=== PATIENT | female | born 1950 | race Caucasian/White ===

== ENCOUNTER 2017-09-27 12:16 | Inpatient (IN) ==
[2017-09-27] MEDS ORDERED: SODIUM CHLORIDE 0.9% 500 ML IV STA (12:43)
[2017-09-27] MEDS ORDERED: DIPH/TET/ACEL PERT BOOSTER VACCINE 0.5 ML VIAL IM ONE (12:43)
[2017-09-27 12:56] LABS: Basophils % 0.1 % (0.0-0.8); Hematocrit 38.1 VOL% (35.7-47.0); Immature Granulocytes % 0.8 %; Immature Granulocytes Absolute 0.15 #; Lymphocytes # 1.4 10*3/uL (1.4-4.0); Lymphocytes % 7.3 % (21.3-54.2); Mean Corpuscular HGB Conc 34.1 GM/DL (32-36); Mean Corpuscular Hemoglobin 28 PG (27-34); Mean Corpuscular Volume 83.2 FL (87-102); Mean Platelet Volume 9.1 FL (9.6-12.0); Monocytes % 5.3 % (1.7-12.7); Neutrophils % 86.5 % (38.7-73.9); Platelet Count 413 T/CUMM (130-400); Red Blood Count 4.58 MC/CUMM (3.8-5.5); Red Cell Distribution Width 13.2 % (9.3-17.3); White Blood Count 18.5 T/CUMM (4-12)
[2017-09-27 13:06] LABS: Amorphous Crystals,Urine Occasional /HPF (Few); Apearance,Urine CLEAR (Clear); Bacteria,Urine Occasional /HPF (Few); Bilirubin,Urine Negative (Negative); Blood, Urine Moderate mg/dL (Negative); Glucose,Urine (UA) >=500 mg/dL (Negative); Ketones,Urine Negative (Negative); Mucus,Urine Occasional /LPF (Occasional); Nitrite,Urine Negative (Negative); Protein,Urine 100 MG/DL; RBC,Urine 1 /HPF (0-4); Urine Color Yellow (Yellow); Urine Specific Gravity 1.006 (1.001-1.035); Urine Urobilinogen < 2.0 EU/DL (0.2-1.0); WBC,Urine <1 /HPF (0-6)
[2017-09-27 13:07] LABS: PT Patient Result 10.8 SECS; Partial Thromboplastin Time 26.6 SECS (0-40)
[2017-09-27 13:30] LABS: Albumin 3.5 G/DL (3.4-5.0); Bilirubin,Total 0.6 MG/DL (0.2-1.0); Calcium 9.2 MG/DL (8.5-10.1); Osmolality,Calculated 299.1 MOS/KG (273-304); Total Protein 8.7 G/DL (6.4-8.3)
[2017-09-27] MEDS ORDERED: ACETAMINOPHEN 325 MG TABLET PO PRN (15:14)
[2017-09-27] MEDS ORDERED: ONDANSETRON 4 MG/2 ML VIAL IV PRN (15:14)
[2017-09-27] MEDS ORDERED: METOPROLOL TARTRATE 5 MG/5 ML VIAL IV STA (15:18)
[2017-09-27] MEDS ORDERED: GLUCAGON 1 MG VIAL IM PRN (15:23)
[2017-09-27] MEDS ORDERED: DEXTROSE 50% 25 GM/50 ML VIAL IV PRN (15:23)
[2017-09-27] MEDS: SODIUM CHLORIDE 0.9% 1,000 ML IV SCH ×2 (15:43→16:33)
[2017-09-27] MEDS: POTASSIUM CHLORIDE 20 MEQ TABLET PO PRN ×4 (16:49→23:30)
[2017-09-27] MEDS: INSULIN LISPRO 100 UNIT/ML SUBCUT SCH ×2 (18:48→21:29)
[2017-09-27] MEDS: CYPROHEPTADINE 4 MG TABLET PO SCH (21:25)
[2017-09-28] MEDS: hydrALAZINE 20 MG/1 ML VIAL IV PRN ×3 (00:27→16:49)
[2017-09-28] MEDS: SODIUM CHLORIDE 0.9% 1,000 ML IV SCH ×2 (05:49→19:23)
[2017-09-28 05:50] LABS: Basophils % 0.1 % (0.0-0.8); Hematocrit 30.4 VOL% (35.7-47.0); Hemoglobin 10.3 GM/DL (12.0-16.0); Immature Granulocytes % 0.5 %; Immature Granulocytes Absolute 0.07 #; Lymphocytes # 2.5 10*3/uL (1.4-4.0); Lymphocytes % 16.3 % (21.3-54.2); Mean Corpuscular HGB Conc 33.9 GM/DL (32-36); Mean Corpuscular Hemoglobin 28 PG (27-34); Mean Corpuscular Volume 82.6 FL (87-102); Mean Platelet Volume 9.1 FL (9.6-12.0); Monocytes % 6.6 % (1.7-12.7); NRBC # 0.02 10*3/uL; Neutrophils # 11.8 10*3/uL (1.4-7.4); Neutrophils % 76.5 % (38.7-73.9); Platelet Count 336 T/CUMM (130-400); Red Blood Count 3.68 MC/CUMM (3.8-5.5); Red Cell Distribution Width 13.4 % (9.3-17.3); White Blood Count 15.4 T/CUMM (4-12)
[2017-09-28 06:16] LABS: Calcium 8.8 MG/DL (8.5-10.1); Potassium 3.6 MMOL/L (3.5-5.1); Thyroid Stimulating Hormone 0.284 uIU/ml (0.358-3.74)
[2017-09-28] MEDS: INSULIN LISPRO 100 UNIT/ML SUBCUT SCH ×4 (08:04→22:11)
[2017-09-28] MEDS ORDERED: METOPROLOL TARTRATE 25 MG TABLET PO SCH ×2 (09:00→11:30)
[2017-09-28] MEDS: CYPROHEPTADINE 4 MG TABLET PO SCH ×2 (09:59→21:59)
[2017-09-28] MEDS: PANTOPRAZOLE 40 MG TABLET PO SCH (10:01)
[2017-09-28] MEDS: METOPROLOL TARTRATE 25 MG TABLET PO SCH ×2 (11:16→21:59)
[2017-09-29] MEDS: LEVOTHYROXINE 100 MCG TABLET PO SCH (07:05)
[2017-09-29 07:07] LABS: Basophils % 0.1 % (0.0-0.8); Hematocrit 28.2 VOL% (35.7-47.0); Hemoglobin 9.6 GM/DL (12.0-16.0); Immature Granulocytes % 0.7 %; Immature Granulocytes Absolute 0.08 #; Lymphocytes # 2.2 10*3/uL (1.4-4.0); Lymphocytes % 19.6 % (21.3-54.2); Mean Corpuscular Hemoglobin 28 PG (27-34); Mean Corpuscular Volume 81.7 FL (87-102); Mean Platelet Volume 9.3 FL (9.6-12.0); Monocytes # 0.8 10*3/uL (0.11-0.8); Monocytes % 6.8 % (1.7-12.7); Neutrophils # 8.1 10*3/uL (1.4-7.4); Neutrophils % 72.8 % (38.7-73.9); Platelet Count 317 T/CUMM (130-400); Red Blood Count 3.45 MC/CUMM (3.8-5.5); Red Cell Distribution Width 13.2 % (9.3-17.3); White Blood Count 11.1 T/CUMM (4-12)
[2017-09-29] MEDS: INSULIN LISPRO 100 UNIT/ML SUBCUT SCH ×4 (07:32→22:51)
[2017-09-29 07:34] LABS: Calcium 8.6 MG/DL (8.5-10.1); Osmolality,Calculated 276.7 MOS/KG (273-304); Potassium 3.2 MMOL/L (3.5-5.1)
[2017-09-29 08:07] LABS: Troponin I Only 0.05 NG/ML (0.00-0.045)
[2017-09-29] MEDS ORDERED: POLYETHYLENE GLYCOL POWDER 17 GM PACK PO PRN (08:34)
[2017-09-29] MEDS: PANTOPRAZOLE 40 MG TABLET PO SCH (08:42)
[2017-09-29] MEDS: CYPROHEPTADINE 4 MG TABLET PO SCH ×2 (08:42→21:32)
[2017-09-29] MEDS: METOPROLOL TARTRATE 25 MG TABLET PO SCH (08:42)
[2017-09-29] MEDS: SODIUM CHLORIDE 0.9% 1,000 ML IV SCH ×2 (08:43→23:03)
[2017-09-29] MEDS ORDERED: PROMETHAZINE 12.5 MG SUPP RECTAL PRN (08:45)
[2017-09-29] MEDS: POTASSIUM CHLORIDE 20 MEQ TABLET PO PRN ×2 (11:15→13:15)
[2017-09-29] MEDS ORDERED: METOPROLOL TARTRATE 25 MG TABLET PO ONE (13:00)
[2017-09-29] MEDS: POTASSIUM CHLORIDE RIDER 10 MEQ in PREMIX 1 EACH IV SCH ×4 (13:49→18:10)
[2017-09-29] MEDS: amLODIPine 5 MG TABLET PO SCH (17:20)
[2017-09-29] MEDS ORDERED: LOSARTAN 25 MG TABLET PO SCH (21:00)
[2017-09-29] MEDS ORDERED: METOPROLOL TARTRATE 50 MG TABLET PO SCH (21:00)
[2017-09-29] MEDS: NEBIVOLOL 5 MG TABLET PO SCH (21:30)
[2017-09-29] MEDS: POTASSIUM CHLORIDE PO SCH (23:04)
[2017-09-30] MEDS: LEVOTHYROXINE 100 MCG TABLET PO SCH ×2 (05:18→07:01)
[2017-09-30 06:03] LABS: Basophils % 0.1 % (0.0-0.8); Eosinophils # 0.1 10*3/uL (0.0-0.87); Eosinophils % 0.5 % (0.00-10.9); Hematocrit 28.4 VOL% (35.7-47.0); Hemoglobin 9.8 GM/DL (12.0-16.0); Immature Granulocytes % 0.7 %; Immature Granulocytes Absolute 0.08 #; Lymphocytes # 2.2 10*3/uL (1.4-4.0); Lymphocytes % 20.7 % (21.3-54.2); Mean Corpuscular HGB Conc 34.5 GM/DL (32-36); Mean Corpuscular Hemoglobin 29 PG (27-34); Mean Platelet Volume 9.3 FL (9.6-12.0); Monocytes # 0.8 10*3/uL (0.11-0.8); Monocytes % 7.1 % (1.7-12.7); Neutrophils # 7.6 10*3/uL (1.4-7.4); Neutrophils % 70.9 % (38.7-73.9); Platelet Count 342 T/CUMM (130-400); Red Blood Count 3.38 MC/CUMM (3.8-5.5); White Blood Count 10.8 T/CUMM (4-12)
[2017-09-30 06:31] LABS: Calcium 8.4 MG/DL (8.5-10.1); Osmolality,Calculated 278.4 MOS/KG (273-304); Potassium 3.4 MMOL/L (3.5-5.1)
[2017-09-30] MEDS: INSULIN LISPRO 100 UNIT/ML SUBCUT SCH ×2 (07:44→11:50)
[2017-09-30] MEDS ORDERED: fentaNYL 12 MCG/HR PATCH TRANSDERM SCH (09:00)
[2017-09-30] MEDS: POTASSIUM CHLORIDE PO SCH (10:30)
[2017-09-30] MEDS: PANTOPRAZOLE 40 MG TABLET PO SCH (10:30)
[2017-09-30] MEDS: CYPROHEPTADINE 4 MG TABLET PO SCH (10:30)
[2017-09-30] MEDS: amLODIPine 5 MG TABLET PO SCH (10:30)
[2017-09-30] MEDS: NEBIVOLOL 5 MG TABLET PO SCH (10:30)
[2017-09-30] MEDS ORDERED: POTASSIUM CHLORIDE 20 MEQ TABLET PO ONE (11:00)
[2017-09-30 11:41] VITALS: BP 180/80
[2017-09-30] MEDS: SODIUM CHLORIDE 0.9% 1,000 ML IV SCH (12:15)
== END 2017-09-30 13:20 | disposition home or self-care (01) | DRG 565 ==
LOC: EDBD → EDUNIT# → N.ED 12:16 → N.EDINP 15:01 → N.2E 16:05

== ENCOUNTER 2017-10-28 03:37 | Inpatient (IN) ==
[2017-10-28] MEDS ORDERED: PANTOPRAZOLE 40 MG VIAL IV STA (04:07)
[2017-10-28] MEDS ORDERED: SODIUM CHLORIDE 0.9% 500 ML IV STA (04:07)
[2017-10-28] MEDS ORDERED: ONDANSETRON 4 MG/2 ML VIAL IV STA (04:07)
[2017-10-28] MEDS ORDERED: ALUM/MAG/SIMETH/LIDO VISC 1:1 30 ML BOTTLE PO STA (04:07)
[2017-10-28 04:30] LABS: Basophils % 0.2 % (0.0-0.8); Eosinophils % 0.2 % (0.00-10.9); Hematocrit 32.8 VOL% (35.7-47.0); Hemoglobin 10.8 GM/DL (12.0-16.0); Immature Granulocytes % 0.5 %; Immature Granulocytes Absolute 0.09 #; Lymphocytes # 1.1 10*3/uL (1.4-4.0); Lymphocytes % 5.8 % (21.3-54.2); Mean Corpuscular HGB Conc 32.9 GM/DL (32-36); Mean Corpuscular Hemoglobin 28 PG (27-34); Mean Corpuscular Volume 85.2 FL (87-102); Mean Platelet Volume 8.1 FL (9.6-12.0); Monocytes # 0.7 10*3/uL (0.11-0.8); Neutrophils # 16.7 10*3/uL (1.4-7.4); Neutrophils % 89.3 % (38.7-73.9); Platelet Count 419 T/CUMM (130-400); Red Blood Count 3.85 MC/CUMM (3.8-5.5); Red Cell Distribution Width 13.5 % (9.3-17.3); White Blood Count 18.7 T/CUMM (4-12)
[2017-10-28 04:53] LABS: Lactic Acid 1.2 MMOL/L (0.4-2.0)
[2017-10-28 04:54] LABS: Alanine Aminotransferase 17 U/L (13-56); Albumin 3.3 G/DL (3.4-5.0); Alkaline Phosphatase 89 U/L (45-117); Amylase 17 U/L (25-115); Aspartate Amino Transferase 19 U/L (0-37); Bilirubin,Total < 0.39 MG/DL (0.2-1.0); Blood Urea Nitrogen 7 MG/DL (7-18); Glucose 151 MG/DL (74-106); Osmolality,Calculated 273.8 MOS/KG (273-304); Potassium 2.8 MMOL/L (3.5-5.1); Sodium 137 MMOL/L (136-145); Total Protein 8.1 G/DL (6.4-8.3)
[2017-10-28] MEDS ORDERED: POTASSIUM CHLORIDE 20 MEQ TABLET PO STA (05:05)
[2017-10-28] MEDS ORDERED: HYDROmorphone 2 MG/1 ML VIAL IV STA (05:20)
[2017-10-28] MEDS ORDERED: metroNIDAZOLE 500 MG TABLET PO STA (05:22)
[2017-10-28] MEDS ORDERED: CIPROFLOXACIN INJ 400 MG in PREMIX 1 EACH IV STA (05:22)
[2017-10-28 07:23] LABS: Risk Ratio 2.83; Thyroid Stimulating Hormone 4.47 uIU/ml (0.358-3.74); VLDL CHOLESTEROL 26.2 MG/DL
[2017-10-28] MEDS ORDERED: POTASSIUM CHLORIDE RIDER 100 ML IV ONE ×4 (07:53→12:19)
[2017-10-28] MEDS: ENOXAPARIN 40 MG/0.4 ML SYRINGE SUBCUT SCH (08:04)
[2017-10-28] MEDS: LEVOFLOXACIN INJ 500 MG in PREMIX 1 EACH IV SCH (08:04)
[2017-10-28] MEDS: POTASSIUM CHLORIDE RIDER 10 MEQ in PREMIX 1 EACH IV SCH ×4 (08:05→12:20)
[2017-10-28 08:13] LABS: Apearance,Urine CLEAR (Clear); Bilirubin,Urine Negative (Negative); Blood, Urine Negative (Negative); Glucose,Urine (UA) Negative (Negative); Ketones,Urine Negative (Negative); Nitrite,Urine Negative (Negative); Protein,Urine Negative; RBC,Urine <1 /HPF (0-4); Squamous Epithelial Cell,Urine Occasional /HPF (0-10); Urine Color Straw (Yellow); Urine Specific Gravity 1.019 (1.001-1.035); Urine Urobilinogen < 2.0 EU/DL (0.2-1.0); WBC,Urine 7 /HPF (0-6)
[2017-10-28] MEDS ORDERED: SODIUM CHLORIDE 0.9% 1,000 ML IV SCH (09:00)
[2017-10-28] MEDS: PANTOPRAZOLE 40 MG TABLET PO SCH (09:15)
[2017-10-28] MEDS: POTASSIUM CHLORIDE 20 MEQ TABLET PO SCH (09:15)
[2017-10-28] MEDS ORDERED: LEVOTHYROXINE 100 MCG TABLET PO ONE (09:30)
[2017-10-28] MEDS: amLODIPine 5 MG TABLET PO SCH (09:35)
[2017-10-28] MEDS: metroNIDAZOLE INJ 500 MG in PREMIX 1 EACH IV SCH ×2 (09:51→16:52)
[2017-10-28] MEDS: CYPROHEPTADINE 4 MG TABLET PO SCH ×2 (10:23→22:17)
[2017-10-28] MEDS ORDERED: GLUCAGON 1 MG VIAL IM PRN (15:41)
[2017-10-28] MEDS ORDERED: DEXTROSE 50% 25 GM/50 ML VIAL IV PRN (15:41)
[2017-10-28] MEDS ORDERED: POTASSIUM CHLORIDE INJ 20 MEQ in SODIUM CHLORIDE 0.9% 1,000 ML IV SCH (15:46)
[2017-10-28] MEDS: INSULIN LISPRO 100 UNIT/ML SUBCUT SCH ×2 (16:39→22:17)
[2017-10-28] MEDS: SODIUM CHLOR 0.9% KCL 20 MEQ 20 MEQ/1,000 ML BAG IV SCH (16:53)
[2017-10-28] MEDS: ONDANSETRON 4 MG/2 ML VIAL IV PRN (22:15)
[2017-10-29] MEDS: metroNIDAZOLE INJ 500 MG in PREMIX 1 EACH IV SCH ×3 (01:30→16:58)
[2017-10-29] MEDS: SODIUM CHLOR 0.9% KCL 20 MEQ 20 MEQ/1,000 ML BAG IV SCH ×2 (06:11→13:20)
[2017-10-29 06:21] LABS: Basophils % 0.2 % (0.0-0.8); Eosinophils % 0.7 % (0.00-10.9); Hematocrit 29.2 VOL% (35.7-47.0); Hemoglobin 9.3 GM/DL (12.0-16.0); Immature Granulocytes % 0.4 %; Immature Granulocytes Absolute 0.02 #; Lymphocytes # 1.4 10*3/uL (1.4-4.0); Lymphocytes % 26.6 % (21.3-54.2); Mean Corpuscular HGB Conc 31.8 GM/DL (32-36); Mean Corpuscular Hemoglobin 28 PG (27-34); Mean Corpuscular Volume 86.4 FL (87-102); Mean Platelet Volume 8.6 FL (9.6-12.0); Monocytes # 0.5 10*3/uL (0.11-0.8); Monocytes % 9.9 % (1.7-12.7); Neutrophils # 3.4 10*3/uL (1.4-7.4); Neutrophils % 62.2 % (38.7-73.9); Platelet Count 366 T/CUMM (130-400); Red Blood Count 3.38 MC/CUMM (3.8-5.5); Red Cell Distribution Width 13.9 % (9.3-17.3); White Blood Count 5.4 T/CUMM (4-12)
[2017-10-29 06:45] LABS: Bilirubin,Total 0.6 MG/DL (0.2-1.0); Osmolality,Calculated 278.3 MOS/KG (273-304); Potassium 3.5 MMOL/L (3.5-5.1); Total Protein 7.2 G/DL (6.4-8.3)
[2017-10-29] MEDS: ENOXAPARIN 40 MG/0.4 ML SYRINGE SUBCUT SCH (06:55)
[2017-10-29] MEDS: LEVOFLOXACIN INJ 500 MG in PREMIX 1 EACH IV SCH (06:55)
[2017-10-29] MEDS: LEVOTHYROXINE 100 MCG TABLET PO SCH (07:35)
[2017-10-29] MEDS ORDERED: BISACODYL 10 MG SUPP RECTAL ONE (08:30)
[2017-10-29] MEDS ORDERED: LACTULOSE 20 GM/30 ML UDCUP PO ONE (08:30)
[2017-10-29 08:33] LABS: % Iron Saturation 13.9 % (18-50)
[2017-10-29] MEDS: PANTOPRAZOLE 40 MG TABLET PO SCH (09:45)
[2017-10-29] MEDS: amLODIPine 5 MG TABLET PO SCH (09:45)
[2017-10-29] MEDS: CYPROHEPTADINE 4 MG TABLET PO SCH ×2 (09:45→21:51)
[2017-10-29] MEDS: INSULIN LISPRO 100 UNIT/ML SUBCUT SCH ×4 (09:45→21:41)
[2017-10-29] MEDS: POTASSIUM CHLORIDE 20 MEQ TABLET PO SCH (09:45)
[2017-10-29] MEDS ORDERED: CYANOCOBALAMIN 1000 MCG/1 ML VIAL IM ONE (10:32)
[2017-10-29] MEDS: VANCOMYCIN INJ 1,000 MG in SODIUM CHLORIDE 0.9% 250 ML IV SCH ×2 (12:06→21:52)
[2017-10-29] MEDS: traZODone 50 MG TABLET PO SCH (21:51)
[2017-10-29] MEDS: FOLIC ACID 1 MG TABLET PO SCH (21:51)
[2017-10-30] MEDS: metroNIDAZOLE INJ 500 MG in PREMIX 1 EACH IV SCH ×3 (01:09→16:42)
[2017-10-30 04:32] LABS: Basophils % 0.2 % (0.0-0.8); Eosinophils % 0.5 % (0.00-10.9); Hematocrit 32.4 VOL% (35.7-47.0); Hemoglobin 10.4 GM/DL (12.0-16.0); Immature Granulocytes % 0.9 %; Immature Granulocytes Absolute 0.05 #; Lymphocytes # 1.3 10*3/uL (1.4-4.0); Lymphocytes % 23.4 % (21.3-54.2); Mean Corpuscular HGB Conc 32.1 GM/DL (32-36); Mean Corpuscular Hemoglobin 28 PG (27-34); Mean Corpuscular Volume 85.7 FL (87-102); Mean Platelet Volume 8.6 FL (9.6-12.0); Monocytes # 0.6 10*3/uL (0.11-0.8); Neutrophils # 3.7 10*3/uL (1.4-7.4); Platelet Count 363 T/CUMM (130-400); Red Blood Count 3.78 MC/CUMM (3.8-5.5); Red Cell Distribution Width 13.9 % (9.3-17.3); White Blood Count 5.6 T/CUMM (4-12)
[2017-10-30] MEDS: ONDANSETRON 4 MG/2 ML VIAL IV PRN (06:06)
[2017-10-30] MEDS: SODIUM CHLOR 0.9% KCL 20 MEQ 20 MEQ/1,000 ML BAG IV SCH ×4 (06:07→18:09)
[2017-10-30] MEDS: LEVOFLOXACIN INJ 500 MG in PREMIX 1 EACH IV SCH (07:40)
[2017-10-30] MEDS: LEVOTHYROXINE 100 MCG TABLET PO SCH (07:40)
[2017-10-30] MEDS: INSULIN LISPRO 100 UNIT/ML SUBCUT SCH ×5 (10:39→21:25)
[2017-10-30] MEDS: VANCOMYCIN INJ 1,000 MG in SODIUM CHLORIDE 0.9% 250 ML IV SCH (12:22)
[2017-10-30] MEDS: CYPROHEPTADINE 4 MG TABLET PO SCH ×2 (16:40→21:21)
[2017-10-30] MEDS: POTASSIUM CHLORIDE 20 MEQ TABLET PO SCH (16:41)
[2017-10-30] MEDS: PANTOPRAZOLE 40 MG TABLET PO SCH (16:41)
[2017-10-30] MEDS: amLODIPine 5 MG TABLET PO SCH (16:41)
[2017-10-30] MEDS: ENOXAPARIN 40 MG/0.4 ML SYRINGE SUBCUT SCH (16:42)
[2017-10-30] MEDS: traZODone 50 MG TABLET PO SCH (21:20)
[2017-10-30] MEDS: FOLIC ACID 1 MG TABLET PO SCH (21:20)
[2017-10-31] MEDS: metroNIDAZOLE INJ 500 MG in PREMIX 1 EACH IV SCH ×2 (00:32→09:15)
[2017-10-31] MEDS ORDERED: MORPHINE 4 MG/1 ML VIAL IV PRN (02:36)
[2017-10-31] MEDS: SODIUM CHLOR 0.9% KCL 20 MEQ 20 MEQ/1,000 ML BAG IV SCH (02:50)
[2017-10-31 03:17] LABS: Basophils % 0.4 % (0.0-0.8); Eosinophils % 0.8 % (0.00-10.9); Hematocrit 29.4 VOL% (35.7-47.0); Hemoglobin 9.7 GM/DL (12.0-16.0); Immature Granulocytes % 0.8 %; Immature Granulocytes Absolute 0.04 #; Lymphocytes # 1.7 10*3/uL (1.4-4.0); Lymphocytes % 32.9 % (21.3-54.2); Mean Corpuscular Hemoglobin 28 PG (27-34); Mean Corpuscular Volume 86.2 FL (87-102); Mean Platelet Volume 8.5 FL (9.6-12.0); Monocytes # 0.6 10*3/uL (0.11-0.8); Monocytes % 11.5 % (1.7-12.7); Neutrophils # 2.8 10*3/uL (1.4-7.4); Neutrophils % 53.6 % (38.7-73.9); Platelet Count 345 T/CUMM (130-400); Red Blood Count 3.41 MC/CUMM (3.8-5.5); Red Cell Distribution Width 13.8 % (9.3-17.3); White Blood Count 5.1 T/CUMM (4-12)
[2017-10-31 03:41] LABS: Calcium 9.2 MG/DL (8.5-10.1)
[2017-10-31 03:42] LABS: Osmolality,Calculated 276.4 MOS/KG (273-304); Potassium 4.2 MMOL/L (3.5-5.1)
[2017-10-31] MEDS: LEVOFLOXACIN INJ 500 MG in PREMIX 1 EACH IV SCH (06:00)
[2017-10-31] MEDS: ENOXAPARIN 40 MG/0.4 ML SYRINGE SUBCUT SCH (06:00)
[2017-10-31] MEDS: ONDANSETRON 4 MG/2 ML VIAL IV PRN (06:09)
[2017-10-31] MEDS: LEVOTHYROXINE 100 MCG TABLET PO SCH (07:48)
[2017-10-31] MEDS: amLODIPine 5 MG TABLET PO SCH (09:14)
[2017-10-31] MEDS: CYPROHEPTADINE 4 MG TABLET PO SCH (09:14)
[2017-10-31] MEDS: POTASSIUM CHLORIDE 20 MEQ TABLET PO SCH (09:14)
[2017-10-31] MEDS: PANTOPRAZOLE 40 MG TABLET PO SCH (09:14)
[2017-10-31] MEDS: INSULIN LISPRO 100 UNIT/ML SUBCUT SCH (09:16)
[2017-10-31 11:55] VITALS: BP 136/70
== END 2017-10-31 12:50 | disposition home or self-care (01) | DRG 690 ==
LOC: N.ED 03:37 → N.EDINP 03:37 → N.3E 14:25
PROVIDERS: ADMIT Internal Medicine; ATTEND Internal Medicine

== ENCOUNTER 2017-11-30 09:04 | Inpatient (IN) ==
[2017-11-30 10:05] LABS: Basophils % 0.3 % (0.0-0.8); Eosinophils % 0.5 % (0.00-10.9); Hematocrit 38.5 VOL% (35.7-47.0); Hemoglobin 12.6 GM/DL (12.0-16.0); Immature Granulocytes % 0.7 %; Immature Granulocytes Absolute 0.04 #; Lymphocytes # 1.5 10*3/uL (1.4-4.0); Lymphocytes % 25.8 % (21.3-54.2); Mean Corpuscular HGB Conc 32.7 GM/DL (32-36); Mean Corpuscular Hemoglobin 28 PG (27-34); Mean Corpuscular Volume 83.9 FL (87-102); Monocytes # 0.4 10*3/uL (0.11-0.8); Monocytes % 7.1 % (1.7-12.7); Neutrophils # 3.8 10*3/uL (1.4-7.4); Neutrophils % 65.6 % (38.7-73.9); Platelet Count 379 T/CUMM (130-400); Red Blood Count 4.59 MC/CUMM (3.8-5.5); Red Cell Distribution Width 13.6 % (9.3-17.3); White Blood Count 5.8 T/CUMM (4-12)
[2017-11-30 10:17] LABS: INR 0.9; Partial Thromboplastin Time 27.1 SECS (0-40)
[2017-11-30 10:23] LABS: Apearance,Urine CLEAR (Clear); Bilirubin,Urine Negative (Negative); Blood, Urine Negative (Negative); Glucose,Urine (UA) Negative (Negative); Ketones,Urine Negative (Negative); Mucus,Urine Occasional /LPF (Occasional); Nitrite,Urine Negative (Negative); Protein,Urine Negative; RBC,Urine <1 /HPF (0-4); Urine Color Straw (Yellow); Urine Specific Gravity 1.005 (1.001-1.035); Urine Urobilinogen < 2.0 EU/DL (0.2-1.0)
[2017-11-30 10:34] LABS: Alanine Aminotransferase 23 U/L (13-56); Alkaline Phosphatase 67 U/L (45-117); Aspartate Amino Transferase 17 U/L (0-37); Blood Urea Nitrogen 7 MG/DL (7-18); Calcium 9.7 MG/DL (8.5-10.1); Glucose 130 MG/DL (74-106); Osmolality,Calculated 278.4 MOS/KG (273-304); Potassium 3.5 MMOL/L (3.5-5.1); Sodium 140 MMOL/L (136-145); Total Protein 8.8 G/DL (6.4-8.3)
[2017-11-30 10:37] LABS: Barbiturates Screen,Urine Negative (Negative); Benzodiazepines Screen,Urine Negative (Negative); Cannabinoid Screen,Urine Negative (Negative); Opiate Screen,Urine Positive (Negative); Phencyclidine Screen,Urine Negative (Negative)
[2017-11-30 10:37] LABS: Ammonia 16 UMOL/L (11-32)
[2017-11-30 11:53] LABS: Sedimentation Rate-Westergren 66 MM/HR (0-30)
[2017-11-30] MEDS ORDERED: diphenhydrAMINE CAP 25 MG CAPSULE PO PRN (12:47)
[2017-11-30] MEDS ORDERED: ONDANSETRON 4 MG/2 ML VIAL IV PRN (12:47)
[2017-11-30] MEDS ORDERED: POLYETHYLENE GLYCOL POWDER 17 GM PACK PO PRN (12:47)
[2017-11-30] MEDS ORDERED: DOCUSATE SODIUM 100 MG CAPSULE PO PRN (12:47)
[2017-11-30] MEDS ORDERED: MORPHINE 4 MG/1 ML VIAL IV PRN (12:47)
[2017-11-30] MEDS ORDERED: LISINOPRIL 20 MG TABLET PO SCH (13:00)
[2017-11-30] MEDS: NEBIVOLOL 5 MG TABLET PO SCH ×2 (14:43→21:28)
[2017-11-30] MEDS: ENOXAPARIN 40 MG/0.4 ML SYRINGE SUBCUT SCH (14:43)
[2017-11-30] MEDS: LEVOTHYROXINE 100 MCG TABLET PO SCH (14:43)
[2017-11-30] MEDS: POTASSIUM CHLORIDE 10 MEQ TABLET PO SCH ×2 (14:43→21:28)
[2017-11-30] MEDS: amLODIPine 5 MG TABLET PO SCH (14:44)
[2017-11-30] MEDS: ASPIRIN CHEW 81 MG TABLET PO SCH (14:44)
[2017-11-30] MEDS: SODIUM CHLORIDE 0.9% 1,000 ML IV SCH (14:44)
[2017-11-30] MEDS: PANTOPRAZOLE 40 MG TABLET PO SCH (14:44)
[2017-11-30] MEDS: ROSUVASTATIN 10 MG TABLET PO SCH (21:28)
[2017-12-01 04:56] LABS: Basophils % 0.5 % (0.0-0.8); Eosinophils # 0.1 10*3/uL (0.0-0.87); Eosinophils % 0.8 % (0.00-10.9); Hematocrit 34.2 VOL% (35.7-47.0); Hemoglobin 10.7 GM/DL (12.0-16.0); Immature Granulocytes % 0.6 %; Immature Granulocytes Absolute 0.04 #; Lymphocytes # 2.3 10*3/uL (1.4-4.0); Lymphocytes % 35.3 % (21.3-54.2); Mean Corpuscular HGB Conc 31.3 GM/DL (32-36); Mean Corpuscular Hemoglobin 27 PG (27-34); Mean Corpuscular Volume 86.6 FL (87-102); Mean Platelet Volume 9.5 FL (9.6-12.0); Monocytes # 0.6 10*3/uL (0.11-0.8); Monocytes % 9.6 % (1.7-12.7); Neutrophils # 3.5 10*3/uL (1.4-7.4); Neutrophils % 53.2 % (38.7-73.9); Platelet Count 331 T/CUMM (130-400); Red Blood Count 3.95 MC/CUMM (3.8-5.5); Red Cell Distribution Width 13.5 % (9.3-17.3); White Blood Count 6.5 T/CUMM (4-12)
[2017-12-01 05:16] LABS: Osmolality,Calculated 281.3 MOS/KG (273-304); Potassium 3.9 MMOL/L (3.5-5.1); VLDL CHOLESTEROL 48.8 MG/DL
[2017-12-01] MEDS: LEVOTHYROXINE 100 MCG TABLET PO SCH (09:16)
[2017-12-01] MEDS: NEBIVOLOL 5 MG TABLET PO SCH ×2 (09:16→21:38)
[2017-12-01] MEDS: POTASSIUM CHLORIDE 10 MEQ TABLET PO SCH ×2 (09:17→21:38)
[2017-12-01] MEDS: ASPIRIN CHEW 81 MG TABLET PO SCH (09:17)
[2017-12-01] MEDS: PANTOPRAZOLE 40 MG TABLET PO SCH (09:17)
[2017-12-01] MEDS: amLODIPine 5 MG TABLET PO SCH (09:17)
[2017-12-01] MEDS: ENOXAPARIN 40 MG/0.4 ML SYRINGE SUBCUT SCH (09:17)
[2017-12-01] MEDS: SODIUM CHLORIDE 0.9% 1,000 ML IV SCH (10:56)
[2017-12-01] MEDS: ROSUVASTATIN 10 MG TABLET PO SCH (21:37)
[2017-12-02] MEDS: SODIUM CHLORIDE 0.9% 1,000 ML IV SCH (07:08)
[2017-12-02] MEDS: NEBIVOLOL 5 MG TABLET PO SCH ×2 (08:49→20:49)
[2017-12-02] MEDS: ASPIRIN CHEW 81 MG TABLET PO SCH (08:50)
[2017-12-02] MEDS: LEVOTHYROXINE 100 MCG TABLET PO SCH (08:50)
[2017-12-02] MEDS: amLODIPine 5 MG TABLET PO SCH (08:50)
[2017-12-02] MEDS: POTASSIUM CHLORIDE 10 MEQ TABLET PO SCH ×2 (08:50→20:50)
[2017-12-02] MEDS: ENOXAPARIN 40 MG/0.4 ML SYRINGE SUBCUT SCH (08:50)
[2017-12-02] MEDS: PANTOPRAZOLE 40 MG TABLET PO SCH (08:50)
[2017-12-02] MEDS: FLUoxetine 20 MG CAPSULE PO SCH (20:50)
[2017-12-02] MEDS: ROSUVASTATIN 10 MG TABLET PO SCH (20:50)
[2017-12-03] MEDS: SODIUM CHLORIDE 0.9% 1,000 ML IV SCH (03:00)
[2017-12-03] MEDS ORDERED: ceFAZolin 1,000 MG in SYRINGE 1 EACH IV ONE (07:00)
[2017-12-03] MEDS: POTASSIUM CHLORIDE 10 MEQ TABLET PO SCH ×2 (08:11→20:29)
[2017-12-03] MEDS: NEBIVOLOL 5 MG TABLET PO SCH ×2 (08:11→20:29)
[2017-12-03] MEDS: ASPIRIN CHEW 81 MG TABLET PO SCH (08:11)
[2017-12-03] MEDS: PANTOPRAZOLE 40 MG TABLET PO SCH (08:12)
[2017-12-03] MEDS: LEVOTHYROXINE 100 MCG TABLET PO SCH (08:12)
[2017-12-03] MEDS: amLODIPine 5 MG TABLET PO SCH (08:12)
[2017-12-03] MEDS: ENOXAPARIN 40 MG/0.4 ML SYRINGE SUBCUT SCH (08:12)
[2017-12-03] MEDS ORDERED: LIDOCAINE 1% 20 ML VIAL ONE ×2 (08:15→09:12)
[2017-12-03] MEDS ORDERED: HEPARIN 5,000 UNIT/1 ML VIAL ONE ×2 (08:15→09:11)
[2017-12-03] MEDS ORDERED: ceFAZolin 1,000 MG VIAL ONE (10:26)
[2017-12-03] MEDS ORDERED: DEXTROSE 50% 25 GM/50 ML VIAL IV PRN (11:15)
[2017-12-03] MEDS ORDERED: ONDANSETRON 4 MG/2 ML VIAL IV PRN (11:15)
[2017-12-03] MEDS ORDERED: HYDROmorphone 2 MG/1 ML VIAL IV PRN (11:15)
[2017-12-03] MEDS ORDERED: oxyCODONE/ACETAMINOPHEN 5-325 MG TABLET PO PRN (11:15)
[2017-12-03] MEDS ORDERED: PROMETHAZINE 25 MG/1 ML VIAL IM PRN (11:15)
[2017-12-03] MEDS ORDERED: NALOXONE 0.4 MG/ML VIAL IV PRN (11:15)
[2017-12-03] MEDS ORDERED: GLUCAGON 1 MG VIAL IM PRN (11:15)
[2017-12-03] MEDS ORDERED: NITROPRUSSIDE 100 MG in DEXTROSE 5% 250 ML IV SCH (11:30)
[2017-12-03] MEDS ORDERED: PHENYLEPHRINE DRIP 40 MG/250 ML PREMIX IV SCH (11:30)
[2017-12-03] MEDS ORDERED: fentaNYL 100 MCG/2 ML VIAL ONE ×2 (11:40→11:41)
[2017-12-03] MEDS ORDERED: PROPOFOL 200 MG/20 ML VIAL IV ONE (11:40)
[2017-12-03] MEDS ORDERED: SEVOFLURANE 1 UNIT/15 MINUTE INH ONE (11:40)
[2017-12-03] MEDS ORDERED: HEPARIN/NACL 0.9% 2 UNITS/ML 500 ML IV ONE (11:40)
[2017-12-03] MEDS ORDERED: HEPARIN 10,000 UNIT/10 ML VIAL ONE (11:40)
[2017-12-03] MEDS ORDERED: NITROGLYCERIN DRIP 50 MG/250 ML BOTTLE IV ONE (11:41)
[2017-12-03] MEDS ORDERED: GLYCOPYRROLATE 0.4 MG/2 ML VIAL ONE (11:41)
[2017-12-03] MEDS ORDERED: PHENYLEPHRINE 10 MG/1 ML VIAL IV ONE (11:41)
[2017-12-03] MEDS ORDERED: NEOSTIGMINE 10 MG/10 ML VIAL ONE (11:41)
[2017-12-03] MEDS ORDERED: ROCURONIUM 100 MG/10 ML VIAL IV ONE (11:41)
[2017-12-03] MEDS ORDERED: PROTAMINE SULFATE 50 MG/5 ML VIAL IV ONE (11:41)
[2017-12-03] MEDS ORDERED: ONDANSETRON 4 MG/2 ML VIAL ONE (11:41)
[2017-12-03] MEDS ORDERED: LACTATED RINGERS 1,000 ML IV ONE (11:41)
[2017-12-03] MEDS: LACTATED RINGERS 1,000 ML IV SCH ×2 (12:53→21:38)
[2017-12-03] MEDS: HYDROmorphone 2 MG/1 ML VIAL IV PRN ×3 (13:40→22:57)
[2017-12-03] MEDS: FLUoxetine 20 MG CAPSULE PO SCH (20:29)
[2017-12-03] MEDS: oxyCODONE/ACETAMINOPHEN 5-325 MG TABLET PO PRN (20:29)
[2017-12-03] MEDS: ROSUVASTATIN 10 MG TABLET PO SCH (20:29)
[2017-12-04 04:03] LABS: Basophils % 0.2 % (0.0-0.8); Eosinophils % 0.3 % (0.00-10.9); Hematocrit 26.4 VOL% (35.7-47.0); Hemoglobin 8.2 GM/DL (12.0-16.0); Immature Granulocytes % 0.5 %; Immature Granulocytes Absolute 0.03 #; Lymphocytes # 1.5 10*3/uL (1.4-4.0); Mean Corpuscular HGB Conc 31.1 GM/DL (32-36); Mean Corpuscular Hemoglobin 27 PG (27-34); Mean Corpuscular Volume 86.3 FL (87-102); Mean Platelet Volume 9.8 FL (9.6-12.0); Monocytes # 0.7 10*3/uL (0.11-0.8); Monocytes % 10.6 % (1.7-12.7); Neutrophils % 64.4 % (38.7-73.9); Platelet Count 234 T/CUMM (130-400); Red Blood Count 3.06 MC/CUMM (3.8-5.5); Red Cell Distribution Width 13.5 % (9.3-17.3); White Blood Count 6.2 T/CUMM (4-12)
[2017-12-04 04:18] LABS: Calcium 8.8 MG/DL (8.5-10.1); Osmolality,Calculated 280.1 MOS/KG (273-304); Potassium 3.6 MMOL/L (3.5-5.1)
[2017-12-04] MEDS: LACTATED RINGERS 1,000 ML IV SCH (07:40)
[2017-12-04] MEDS: NEBIVOLOL 5 MG TABLET PO SCH ×2 (08:01→21:52)
[2017-12-04] MEDS: CLOPIDOGREL 75 MG TABLET PO SCH (08:01)
[2017-12-04] MEDS: POTASSIUM CHLORIDE 10 MEQ TABLET PO SCH ×2 (08:01→21:51)
[2017-12-04] MEDS: LEVOTHYROXINE 100 MCG TABLET PO SCH (08:01)
[2017-12-04] MEDS: amLODIPine 5 MG TABLET PO SCH (08:01)
[2017-12-04] MEDS: PANTOPRAZOLE 40 MG TABLET PO SCH (08:20)
[2017-12-04] MEDS: ASPIRIN CHEW 81 MG TABLET PO SCH (08:20)
[2017-12-04] MEDS: oxyCODONE/ACETAMINOPHEN 5-325 MG TABLET PO PRN ×2 (13:04→19:28)
[2017-12-04] MEDS: HYDROmorphone 2 MG/1 ML VIAL IV PRN ×2 (17:35→22:04)
[2017-12-04] MEDS: FLUoxetine 20 MG CAPSULE PO SCH (21:51)
[2017-12-04] MEDS: ROSUVASTATIN 10 MG TABLET PO SCH (21:52)
[2017-12-05] MEDS: oxyCODONE/ACETAMINOPHEN 5-325 MG TABLET PO PRN ×2 (06:14→22:14)
[2017-12-05] MEDS: LEVOTHYROXINE 100 MCG TABLET PO SCH (09:12)
[2017-12-05] MEDS: NEBIVOLOL 5 MG TABLET PO SCH ×2 (09:12→22:13)
[2017-12-05] MEDS: CLOPIDOGREL 75 MG TABLET PO SCH (09:12)
[2017-12-05] MEDS: PANTOPRAZOLE 40 MG TABLET PO SCH (09:12)
[2017-12-05] MEDS: amLODIPine 5 MG TABLET PO SCH (09:12)
[2017-12-05] MEDS: ASPIRIN CHEW 81 MG TABLET PO SCH (09:12)
[2017-12-05] MEDS: POTASSIUM CHLORIDE 10 MEQ TABLET PO SCH ×2 (09:13→22:11)
[2017-12-05] MEDS: HYDROmorphone 2 MG/1 ML VIAL IV PRN ×2 (09:29→16:25)
[2017-12-05] MEDS: LACTULOSE 20 GM/30 ML UDCUP PO SCH (22:04)
[2017-12-05] MEDS: POLYETHYLENE GLYCOL POWDER 17 GM PACK PO SCH (22:05)
[2017-12-05] MEDS: SENNA 8.6 MG TABLET PO SCH (22:08)
[2017-12-05] MEDS: ROSUVASTATIN 10 MG TABLET PO SCH (22:11)
[2017-12-05] MEDS: LUBIPROSTONE 24 MCG CAPSULE PO SCH (22:11)
[2017-12-05] MEDS: DOCUSATE SODIUM 100 MG CAPSULE PO SCH (22:12)
[2017-12-05] MEDS: FLUoxetine 20 MG CAPSULE PO SCH (22:13)
[2017-12-06] MEDS: HYDROmorphone 2 MG/1 ML VIAL IV PRN ×2 (01:38→14:21)
[2017-12-06 06:05] LABS: Basophils % 0.4 % (0.0-0.8); Eosinophils % 0.5 % (0.00-10.9); Hematocrit 26.8 VOL% (35.7-47.0); Hemoglobin 8.8 GM/DL (12.0-16.0); Immature Granulocytes % 1.1 %; Immature Granulocytes Absolute 0.06 #; Lymphocytes # 1.6 10*3/uL (1.4-4.0); Lymphocytes % 29.3 % (21.3-54.2); Mean Corpuscular HGB Conc 32.8 GM/DL (32-36); Mean Corpuscular Hemoglobin 28 PG (27-34); Mean Corpuscular Volume 84.5 FL (87-102); Mean Platelet Volume 9.8 FL (9.6-12.0); Monocytes # 0.7 10*3/uL (0.11-0.8); Monocytes % 11.8 % (1.7-12.7); Neutrophils # 3.2 10*3/uL (1.4-7.4); Neutrophils % 56.9 % (38.7-73.9); Platelet Count 240 T/CUMM (130-400); Red Blood Count 3.17 MC/CUMM (3.8-5.5); Red Cell Distribution Width 13.4 % (9.3-17.3); White Blood Count 5.6 T/CUMM (4-12)
[2017-12-06 06:33] LABS: Calcium 8.5 MG/DL (8.5-10.1); Osmolality,Calculated 281.1 MOS/KG (273-304); Potassium 3.1 MMOL/L (3.5-5.1)
[2017-12-06] MEDS: POTASSIUM CHLORIDE 10 MEQ TABLET PO SCH ×2 (09:16→20:49)
[2017-12-06] MEDS: DOCUSATE SODIUM 100 MG CAPSULE PO SCH ×2 (09:16→20:50)
[2017-12-06] MEDS: ASPIRIN CHEW 81 MG TABLET PO SCH (09:16)
[2017-12-06] MEDS: CLOPIDOGREL 75 MG TABLET PO SCH (09:16)
[2017-12-06] MEDS: LUBIPROSTONE 24 MCG CAPSULE PO SCH ×2 (09:16→20:49)
[2017-12-06] MEDS: NEBIVOLOL 5 MG TABLET PO SCH ×2 (09:17→20:50)
[2017-12-06] MEDS: PANTOPRAZOLE 40 MG TABLET PO SCH (09:17)
[2017-12-06] MEDS: amLODIPine 5 MG TABLET PO SCH (09:17)
[2017-12-06] MEDS: LACTULOSE 20 GM/30 ML UDCUP PO SCH (09:18)
[2017-12-06] MEDS: LEVOTHYROXINE 100 MCG TABLET PO SCH (09:18)
[2017-12-06] MEDS: oxyCODONE/ACETAMINOPHEN 5-325 MG TABLET PO PRN ×2 (09:19→21:08)
[2017-12-06] MEDS: POLYETHYLENE GLYCOL POWDER 17 GM PACK PO SCH ×2 (09:27→20:50)
[2017-12-06] MEDS ORDERED: BISACODYL 10 MG SUPP RECTAL PRN (11:38)
[2017-12-06] MEDS ORDERED: MINERAL OIL 30 ML UDCUP PO ONE (16:05)
[2017-12-06] MEDS ORDERED: POTASSIUM CHLORIDE 20 MEQ TABLET PO ONE (16:18)
[2017-12-06] MEDS: FLUoxetine 20 MG CAPSULE PO SCH (20:49)
[2017-12-06] MEDS: ROSUVASTATIN 10 MG TABLET PO SCH (20:49)
[2017-12-06] MEDS: SENNA 8.6 MG TABLET PO SCH (20:50)
[2017-12-06] MEDS ORDERED: LACTULOSE 20 GM/30 ML UDCUP PO SCH (21:00)
[2017-12-07] MEDS: HYDROmorphone 2 MG/1 ML VIAL IV PRN ×3 (00:21→10:56)
[2017-12-07 05:58] LABS: Basophils % 0.2 % (0.0-0.8); Eosinophils % 0.8 % (0.00-10.9); Immature Granulocytes % 0.8 %; Immature Granulocytes Absolute 0.04 #; Lymphocytes # 1.5 10*3/uL (1.4-4.0); Lymphocytes % 28.5 % (21.3-54.2); Mean Corpuscular HGB Conc 33.3 GM/DL (32-36); Mean Corpuscular Hemoglobin 28 PG (27-34); Mean Corpuscular Volume 84.9 FL (87-102); Mean Platelet Volume 9.3 FL (9.6-12.0); Monocytes # 0.5 10*3/uL (0.11-0.8); Monocytes % 10.4 % (1.7-12.7); Neutrophils % 59.3 % (38.7-73.9); Platelet Count 263 T/CUMM (130-400); Red Blood Count 3.18 MC/CUMM (3.8-5.5); Red Cell Distribution Width 13.5 % (9.3-17.3); White Blood Count 5.1 T/CUMM (4-12)
[2017-12-07 06:19] LABS: Calcium 8.8 MG/DL (8.5-10.1); Osmolality,Calculated 280.1 MOS/KG (273-304); Potassium 3.8 MMOL/L (3.5-5.1)
[2017-12-07] MEDS ORDERED: LINACLOTIDE 145 MCG CAPSULE PO SCH (07:30)
[2017-12-07] MEDS ORDERED: SODIUM PHOSPHATE ENEMA 133 ML BOTTLE RECTAL PRN (08:50)
[2017-12-07] MEDS: POLYETHYLENE GLYCOL POWDER 17 GM PACK PO SCH (09:03)
[2017-12-07] MEDS: PANTOPRAZOLE 40 MG TABLET PO SCH (09:06)
[2017-12-07] MEDS: oxyCODONE/ACETAMINOPHEN 5-325 MG TABLET PO PRN (09:06)
[2017-12-07] MEDS: amLODIPine 5 MG TABLET PO SCH (09:06)
[2017-12-07] MEDS: POTASSIUM CHLORIDE 10 MEQ TABLET PO SCH (09:07)
[2017-12-07] MEDS: NEBIVOLOL 5 MG TABLET PO SCH (09:08)
[2017-12-07] MEDS: LEVOTHYROXINE 100 MCG TABLET PO SCH (09:08)
[2017-12-07] MEDS: LUBIPROSTONE 24 MCG CAPSULE PO SCH (09:08)
[2017-12-07] MEDS: ASPIRIN CHEW 81 MG TABLET PO SCH (09:08)
[2017-12-07] MEDS: CLOPIDOGREL 75 MG TABLET PO SCH (09:08)
[2017-12-07 15:06] VITALS: BP 117/60
[2017-12-09] MEDS ORDERED: LINACLOTIDE 145 MCG CAPSULE PO SCH (07:30)
== END 2017-12-07 14:20 | disposition swing bed (61) | DRG 38 ==
LOC: EDUNIT# → EDBD → N.ED 09:04 → N.EDINP 09:04 → SUATTDRO 12:47 → OBSVTOIN 12:47 → N.EDINP 14:20 → N.2W 14:23 → N.2E 15:34 → UNDODISIN 12-03 06:13 → N.ICU 12-03 09:23 → N.3E 12-04 10:12
PROVIDERS: ADMIT Internal Medicine; ATTEND Internal Medicine

== ENCOUNTER 2022-02-13 13:54 | Inpatient (IN) ==
[2022-02-13 16:37] LABS: Basophils # 0.1 10*3/uL (0.0-0.2); Basophils % 0.3 % (0.0-0.8); Eosinophils % 0.2 % (0.00-10.9); Hematocrit 25.2 VOL% (35.7-47.0); Hemoglobin 7.3 GM/DL (12.0-16.0); Immature Granulocytes Absolute 0.24 #; Lymphocytes # 2.4 10*3/uL (1.4-4.0); Lymphocytes % 9.8 % (21.3-54.2); Mean Corpuscular Volume 82.1 FL (87-102); Monocytes # 1.5 10*3/uL (0.11-0.8); Monocytes % 6.3 % (1.7-12.7); NRBC # 0.03 10*3/uL; Neutrophils % 82.4 % (38.7-73.9); Platelet Count 426 T/CUMM (130-400); Red Blood Count 3.07 MC/CUMM (3.8-5.5); Red Cell Distribution Width 19.7 % (9.3-17.3); White Blood Count 23.9 T/CUMM (4-12)
[2022-02-13 16:56] LABS: Alanine Aminotransferase 17 U/L (13-56); Albumin 1.9 G/DL (3.4-5.0); Alkaline Phosphatase 143 U/L (45-117); Aspartate Amino Transferase 28 U/L (0-37); Bilirubin,Total < 0.39 MG/DL (0.20-1.00); Blood Urea Nitrogen 14 MG/DL (7-18); Calcium 10.9 MG/DL (8.5-10.1); Carbon Dioxide 21 MMOL/L (21-32); Chloride 109 MMOL/L (98-107); Glucose 179 MG/DL (74-106); Osmolality,Calculated 281.5 MOS/KG (273-304); Potassium 3.6 MMOL/L (3.5-5.1); Sodium 139 MMOL/L (136-145)
[2022-02-13 17:01] LABS: Anisocytosis 1+; Hypochromia 2+; Lymphocytes 8 % (20-55); Poikilocytosis 1+; Polychromasia 1+; Total Cells Counted 100
[2022-02-13 17:02] LABS: Elliptocytes Few; Platelet Estimate Adequate; Schistocytes Slight; Tear Drop Cells Few
[2022-02-13] MEDS ORDERED: PIPERACILLIN/TAZOBACTAM 3,375 MG in SODIUM CHLORIDE 0.9% 100 ML IV STA (17:16)
[2022-02-13] MEDS ORDERED: SODIUM CHLORIDE 0.9% 1,000 ML IV PRN (17:27)
[2022-02-13 19:07] LABS: Bilirubin,Urine Negative (Negative); Glucose,Urine (UA) 500 mg/dL (Negative); Granular Casts,Urine 4 /LPF (0-1); Ketones,Urine Negative (Negative); Mucus,Urine Occasional /LPF (Occasional); Nitrite,Urine Negative (Negative); Protein,Urine 30 mg/dL (Negative); Squamous Epithelial Cell,Urine Occasional /HPF (0-10); Urine Appearance Clear (Clear); Urine Color Yellow (Yellow)
[2022-02-13 19:08] LABS: Blood, Urine Negative (Negative); Urine Urobilinogen 0.2 eU/dL (<2.0)
[2022-02-13] MEDS ORDERED: ACETAMINOPHEN 325 MG TABLET PO PRN (21:13)
[2022-02-13] MEDS ORDERED: ONDANSETRON 4 MG/2 ML VIAL IV PRN (21:13)
[2022-02-13] MEDS: DOCUSATE SODIUM 100 MG CAPSULE PO SCH (22:54)
[2022-02-14] MEDS: HYDROmorphone 1 MG/1 ML SYRINGE IV PRN ×5 (01:45→20:51)
[2022-02-14] MEDS: SODIUM CHLORIDE 0.9% 1,000 ML IV SCH ×2 (05:07→05:45)
[2022-02-14] MEDS ORDERED: diphenhydrAMINE CAP 25 MG CAPSULE PO ONE (05:25)
[2022-02-14 06:31] LABS: Basophils # 0.1 10*3/uL (0.0-0.2); Basophils % 0.3 % (0.0-0.8); Eosinophils # 0.2 10*3/uL (0.0-0.87); Eosinophils % 0.9 % (0.00-10.9); Hematocrit 30.5 VOL% (35.7-47.0); Hemoglobin 9.5 GM/DL (12.0-16.0); Immature Granulocytes % 0.9 %; Immature Granulocytes Absolute 0.17 #; Lymphocytes # 1.9 10*3/uL (1.4-4.0); Lymphocytes % 9.7 % (21.3-54.2); Mean Corpuscular HGB Conc 31.1 GM/DL (32-36); Mean Corpuscular Volume 79.8 FL (87-102); Monocytes # 1.5 10*3/uL (0.11-0.8); Monocytes % 7.5 % (1.7-12.7); NRBC # 0.09 10*3/uL; Neutrophils % 80.7 % (38.7-73.9); Platelet Count 342 T/CUMM (130-400); Red Blood Count 3.82 MC/CUMM (3.8-5.5); White Blood Count 19.9 T/CUMM (4-12)
[2022-02-14 06:47] LABS: Platelet Estimate Normal
[2022-02-14 06:48] LABS: Anisocytosis 1+
[2022-02-14 06:57] LABS: Alanine Aminotransferase 14 U/L (13-56); Albumin 1.6 G/DL (3.4-5.0); Alkaline Phosphatase 123 U/L (45-117); Aspartate Amino Transferase 30 U/L (0-37); Bilirubin,Total < 0.39 MG/DL (0.20-1.00); Blood Urea Nitrogen 12 MG/DL (7-18); Calcium 10.7 MG/DL (8.5-10.1); Carbon Dioxide 18 MMOL/L (21-32); Chloride 112 MMOL/L (98-107); Glucose 111 MG/DL (74-106); Osmolality,Calculated 275.7 MOS/KG (273-304); Potassium 3.5 MMOL/L (3.5-5.1); Sodium 138 MMOL/L (136-145); Total Protein 7.1 G/DL (6.4-8.2)
[2022-02-14] MEDS: PANTOPRAZOLE 40 MG TABLET PO SCH (08:26)
[2022-02-14] MEDS: DOCUSATE SODIUM 100 MG CAPSULE PO SCH ×2 (08:26→20:48)
[2022-02-14] MEDS ORDERED: SILVER NITRATE STICK 1 EACH TOP ONE (11:00)
[2022-02-14] MEDS: lisinopriL 20 MG TABLET PO SCH ×2 (11:42→12:43)
[2022-02-14] MEDS: diphenhydrAMINE CAP 25 MG CAPSULE PO PRN ×2 (11:42→18:31)
[2022-02-14] MEDS: PREGABALIN 75 MG CAPSULE PO SCH (20:48)
[2022-02-14] MEDS: POTASSIUM CHLORIDE 10 MEQ TABLET PO SCH (20:48)
[2022-02-14] MEDS: busPIRone 10 MG TABLET PO SCH (20:49)
[2022-02-14] MEDS: MIRTAZAPINE 15 MG TABLET PO SCH (20:49)
[2022-02-14] MEDS: buPROPion 75 MG TABLET PO SCH (20:54)
[2022-02-15] MEDS: HYDROmorphone 1 MG/1 ML SYRINGE IV PRN ×3 (04:22→20:09)
[2022-02-15] MEDS: LEVOTHYROXINE 50 MCG TABLET PO SCH (06:09)
[2022-02-15 07:37] LABS: Basophils # 0.1 10*3/uL (0.0-0.2); Basophils % 0.3 % (0.0-0.8); Eosinophils # 0.2 10*3/uL (0.0-0.87); Eosinophils % 0.8 % (0.00-10.9); Hematocrit 31.9 VOL% (35.7-47.0); Hemoglobin 9.6 GM/DL (12.0-16.0); Immature Granulocytes % 0.9 %; Immature Granulocytes Absolute 0.18 #; Lymphocytes # 2.5 10*3/uL (1.4-4.0); Mean Corpuscular HGB Conc 30.1 GM/DL (32-36); Mean Corpuscular Volume 80.6 FL (87-102); Mean Platelet Volume 8.9 FL (9.6-12.0); Monocytes # 1.3 10*3/uL (0.11-0.8); Monocytes % 6.4 % (1.7-12.7); Neutrophils % 79.6 % (38.7-73.9); Platelet Count 373 T/CUMM (130-400); Red Blood Count 3.96 MC/CUMM (3.8-5.5); Red Cell Distribution Width 19.1 % (9.3-17.3); White Blood Count 20.8 T/CUMM (4-12)
[2022-02-15 08:00] LABS: Alanine Aminotransferase 15 U/L (13-56); Albumin 1.9 G/DL (3.4-5.0); Alkaline Phosphatase 130 U/L (45-117); Aspartate Amino Transferase 29 U/L (0-37); Bilirubin,Total < 0.39 MG/DL (0.20-1.00); Blood Urea Nitrogen 9 MG/DL (7-18); Calcium 10.9 MG/DL (8.5-10.1); Carbon Dioxide 22 MMOL/L (21-32); Chloride 109 MMOL/L (98-107); Glucose 69 MG/DL (74-106); Osmolality,Calculated 279.1 MOS/KG (273-304); Potassium 3.5 MMOL/L (3.5-5.1); Sodium 142 MMOL/L (136-145); Total Protein 7.1 G/DL (6.4-8.2)
[2022-02-15 08:09] LABS: Hypochromia Slight; Lymphocytes 14 % (20-55); Microcytosis Slight; Platelet Estimate Adequate; Total Cells Counted 100
[2022-02-15] MEDS ORDERED: HYDROmorphone 1 MG/1 ML SYRINGE IV ONE (08:19)
[2022-02-15] MEDS ORDERED: NITROGLYCERIN SL 0.4 MG TABLET SL PRN (08:39)
[2022-02-15] MEDS ORDERED: LIDOCAINE HCL 4% TOP PRN (08:39)
[2022-02-15] MEDS: PREGABALIN 75 MG CAPSULE PO SCH ×2 (08:48→20:09)
[2022-02-15] MEDS: busPIRone 10 MG TABLET PO SCH ×2 (08:48→20:08)
[2022-02-15] MEDS: buPROPion 75 MG TABLET PO SCH ×2 (08:49→20:08)
[2022-02-15] MEDS: FOLIC ACID 1 MG TABLET PO SCH (08:49)
[2022-02-15] MEDS: amLODIPine 5 MG TABLET PO SCH (08:49)
[2022-02-15] MEDS: DOCUSATE SODIUM 100 MG CAPSULE PO SCH ×2 (08:49→20:09)
[2022-02-15] MEDS: POTASSIUM CHLORIDE 10 MEQ TABLET PO SCH ×2 (08:49→20:08)
[2022-02-15] MEDS: lisinopriL 20 MG TABLET PO SCH (08:49)
[2022-02-15] MEDS: PANTOPRAZOLE 40 MG TABLET PO SCH (08:49)
[2022-02-15] MEDS: ROSUVASTATIN 20 MG TABLET PO SCH (08:50)
[2022-02-15] MEDS: DAPAGLIFLOZIN 5 MG TABLET PO SCH (11:42)
[2022-02-15] MEDS: diphenhydrAMINE CAP 25 MG CAPSULE PO PRN (17:45)
[2022-02-15] MEDS: MIRTAZAPINE 15 MG TABLET PO SCH (20:09)
[2022-02-16] MEDS: HYDROmorphone 1 MG/1 ML SYRINGE IV PRN ×4 (01:08→18:54)
[2022-02-16] MEDS: LEVOTHYROXINE 50 MCG TABLET PO SCH (05:50)
[2022-02-16] MEDS: DAPAGLIFLOZIN 5 MG TABLET PO SCH (09:08)
[2022-02-16] MEDS: lisinopriL 20 MG TABLET PO SCH (09:08)
[2022-02-16] MEDS: POTASSIUM CHLORIDE 10 MEQ TABLET PO SCH ×2 (09:08→20:25)
[2022-02-16] MEDS: buPROPion 75 MG TABLET PO SCH ×2 (09:08→20:25)
[2022-02-16] MEDS: PREGABALIN 75 MG CAPSULE PO SCH ×2 (09:08→20:25)
[2022-02-16] MEDS: busPIRone 10 MG TABLET PO SCH ×2 (09:09→20:25)
[2022-02-16] MEDS: PANTOPRAZOLE 40 MG TABLET PO SCH (09:09)
[2022-02-16] MEDS: amLODIPine 5 MG TABLET PO SCH (09:09)
[2022-02-16] MEDS: ROSUVASTATIN 20 MG TABLET PO SCH (09:09)
[2022-02-16] MEDS: FOLIC ACID 1 MG TABLET PO SCH (09:09)
[2022-02-16] MEDS: DOCUSATE SODIUM 100 MG CAPSULE PO SCH ×2 (09:09→20:25)
[2022-02-16] MEDS: MIRTAZAPINE 15 MG TABLET PO SCH (20:25)
[2022-02-17] MEDS: HYDROmorphone 1 MG/1 ML SYRINGE IV PRN ×3 (01:34→12:46)
[2022-02-17] MEDS: LEVOTHYROXINE 50 MCG TABLET PO SCH (05:56)
[2022-02-17] MEDS: PANTOPRAZOLE 40 MG TABLET PO SCH (08:40)
[2022-02-17] MEDS: buPROPion 75 MG TABLET PO SCH (08:40)
[2022-02-17] MEDS: lisinopriL 20 MG TABLET PO SCH (08:40)
[2022-02-17] MEDS: busPIRone 10 MG TABLET PO SCH (08:40)
[2022-02-17] MEDS: amLODIPine 5 MG TABLET PO SCH (08:40)
[2022-02-17] MEDS: ROSUVASTATIN 20 MG TABLET PO SCH (08:40)
[2022-02-17] MEDS: POTASSIUM CHLORIDE 10 MEQ TABLET PO SCH (08:40)
[2022-02-17] MEDS: DAPAGLIFLOZIN 5 MG TABLET PO SCH (08:40)
[2022-02-17] MEDS: DOCUSATE SODIUM 100 MG CAPSULE PO SCH (08:40)
[2022-02-17] MEDS: FOLIC ACID 1 MG TABLET PO SCH (08:43)
[2022-02-17] MEDS: PREGABALIN 75 MG CAPSULE PO SCH (08:43)
[2022-02-17] MEDS ORDERED: POLYETHYLENE GLYCOL POWDER 17 GM PACK PO SCH (11:00)
[2022-02-17 11:56] VITALS: BP 150/58
== END 2022-02-17 16:32 | disposition hospice, home (50) | DRG 812 ==
LOC: N.ED 13:54 → N.EDINP 13:54 → N.2E 22:11
PROVIDERS: ADMIT Family Medicine; ATTEND Family Medicine